=== PATIENT | female | born 1940 | race Caucasian/White ===

== ENCOUNTER 2016-04-11 06:32 | Emergency (ER) | payer MEDICARE, BC ==
[2016-04-11] MEDS ORDERED: SODIUM CHLORIDE 0.9% 1,000 ML IV ONE ×2 (07:30→10:35)
--- NOTE | 2016-04-11 07:39 | ED ---
General Adult HPI - General Chief complaint: Altered Mental Status Stated complaint: Altered Mental Time Seen by Provider: 04/11/16 07:00 Source: patient, RN notes reviewed Mode of arrival: EMS Limitations: no limitations - History of Present Illness Initial comments: This a 75-year-old female who presents to the emergency department with her daughter. Patient's past medical history of Alzheimer's. Daughter states today she must have fallen down in the bathroom and used her life alert because EMS arrived. EMS picked her up and brought her to the emergency department. Daughter states she does not complain of any injury does not appear that she has injured her head she has no neck pain. Daughter states that she does seem a little altered from her baseline. Daughter states she seems a little disoriented. Daughter states she was this way yesterday but eventually came around during the day. Daughter wonders if she has urinary tract infection or may be a little dehydrated which are cases in the past that caused her to be altered. Patient does not currently complain of any pain anywhere she denies chest pain or difficulty breathing she denies headache she denies neck pain she denies abdominal pain. Patient has not had any vomiting or diarrhea that the daughter knows of. She has not had any fever cough recently. - Related Data Home Medications Medication Instructions Recorded Confirmed Aspirin [Adult Low Dose Aspirin EC] 81 mg PO DAILY 04/11/16 04/11/16 Donepezil 23mg Tab 23 mg PO DAILY 04/11/16 04/11/16 Memantine [Namenda] 10 mg PO BID 04/11/16 04/11/16 Simvastatin [Zocor] 40 mg PO DAILY 04/11/16 04/11/16 Allergies Allergy/AdvReac Type Severity Reaction Status Date / Time No Known Allergies Allergy Unverified 04/11/16 07:31 Review of Systems ROS Statement: Those systems with pertinent positive or pertinent negative responses have been documented in the HPI. ROS Other: All systems not noted in ROS Statement are negative. Past Medical History Past Medical History: Unable to Obtain History of Any Multi-Drug Resistant Organisms: None Reported, Unobtainable Past Surgical History: Unable to Obtain Past Psychological History: No Psychological Hx Reported, Unable to Obtain Smoking Status: Never smoker Past Drug Use History: Unable to Obtain General Exam - General Exam Comments Initial Comments: GENERAL: Patient is well-developed and well-nourished. Patient is nontoxic and well- hydrated and is in no acute distress. ENT: Neck is soft and supple. No significant lymphadenopathy is noted. Oropharynx is clear. Moist mucous membranes. Neck has full range of motion without eliciting any pain. EYES: The sclera were anicteric and conjunctiva were pink and moist. Extraocular movements were intact and pupils were equal round and reactive to light. Eyelids were unremarkable. PULMONARY: Unlabored respirations. Good breath sounds bilaterally. No audible rales rhonchi or wheezing was noted. CARDIOVASCULAR: There is a regular rate and rhythm without any murmurs gallops or rubs. ABDOMEN: Soft and nontender with normal bowel sounds. No palpable organomegaly was noted. There is no palpable pulsatile mass. SKIN: Skin is clear with no lesions or rashes and otherwise unremarkable. NEUROLOGIC: Patient is alert and oriented 1. Cranial nerves II through XII are grossly intact. Motor and sensory are also intact. Normal speech, volume and content. Symmetrical smile. MUSCULOSKELETAL: Normal extremities with adequate strength and full range of motion. No lower extremity swelling or edema. No calf tenderness. LYMPHATICS: No significant lymphadenopathy is noted PSYCHIATRIC: Normal psychiatric evaluation. Normal interpersonal interactions appears functionally intact in deals appropriately with others. No signs of depression. No signs of anxiety. Limitations: no limitations Course Vital Signs 04/11/16 04/11/16 04/11/16 06:33 07:17 08:54 Temperature 98.5 F Pulse Rate 99 90 98 Respiratory 16 18 18 Rate Blood Pressure 145/63 145/73 172/82 O2 Sat by Pulse 100 96 100 Oximetry 04/11/16 04/11/16 09:38 11:20 Temperature 98.3 F 100.8 F H Pulse Rate 89 92 Respiratory 20 22 Rate Blood Pressure 163/73 159/83 O2 Sat by Pulse 96 Oximetry Medical Decision Making - Medical Decision Making EKG shows a normal sinus rhythm at 92 bpm VA interval is 136 QRS is 90 QT interval 348 QTC is 4:30. Patient's EKG shows no ST segment elevation or depression or T-wave abnormality she noted. Chest x-ray showed no acute abnormality. Urine showed possible urinary tract infection so started the patient on Rocephin. Patient was ambulating to the bathroom with some assistance and complained of left knee pain psychiatric the left knee. Left knee x-ray showed no acute abnormality. CT of the brain shows a large intracranial hemorrhage measuring 2 x 2 0.5 x 3.5 cm in the right parietal occipital region there is also some suspicion for a sub -dural hematoma. - Lab Data Result diagrams: 04/11/16 07:40 04/11/16 07:40 Lab Results 04/11/16 04/11/16 04/11/16 Range/Units 06:48 07:40 07:40 WBC 15.6 H (3.8-10.6) k/uL RBC 4.28 (3.80-5.40) m/uL Hgb 11.7 (11.4-16.0) gm/dL Hct 35.1 (34.0-46.0) % MCV 82.1 (80.0-100.0) fL MCH 27.3 (25.0-35.0) pg MCHC 33.3 (31.0-37.0) g/dL RDW 14.1 (11.5-15.5) % Plt Count 320 (150-450) k/uL Neutrophils % 85 % Lymphocytes % 8 % Monocytes % 5 % Eosinophils % 1 % Basophils % 0 % Neutrophils # 13.3 H (1.3-7.7) k/uL Lymphocytes # 1.2 (1.0-4.8) k/uL Monocytes # 0.8 (0-1.0) k/uL Eosinophils # 0.1 (0-0.7) k/uL Basophils # 0.0 (0-0.2) k/uL PT (9.0-12.0) sec INR (<1.1) APTT (22.0-30.0) sec Sodium (137-145) mmol/L Potassium (3.5-5.1) mmol/L Chloride (98-107) mmol/L Carbon Dioxide (22-30) mmol/L Anion Gap mmol/L BUN (7-17) mg/dL Creatinine (0.52-1.04) mg/dL Est GFR (MDRD) Af Amer (>60 ml/min/1.73 sqM) Est GFR (MDRD) Non-Af (>60 ml/min/1.73 sqM) Glucose (74-99) mg/dL POC Glucose (mg/dL) 111 H (75-99) mg/dL POC Glu Wire Winder ID Milind Arellano Calcium (8.4-10.2) mg/dL Total Bilirubin (0.2-1.3) mg/dL AST (14-36) U/L ALT (9-52) U/L Alkaline Phosphatase (38-126) U/L Total Creatine Kinase 837 H (30-135) U/L CK-MB (CK-2) 11.9 H* (0.0-2.4) ng/mL CK-MB (CK-2) Rel Index 1.4 Troponin I 0.015 (0.000-0.034) ng/mL Total Protein (6.3-8.2) g/dL Albumin (3.5-5.0) g/dL Urine Color Urine Appearance (Clear) Urine pH (5.0-8.0) Ur Specific [place] (1.001-1.035) Urine Protein (Negative) Urine Glucose (UA) (Negative) Urine Ketones (Negative) Urine Blood (Negative) Urine Nitrate (Negative) Urine Bilirubin (Negative) Urine Urobilinogen (<2.0) mg/dL Ur Leukocyte Esterase (Negative) Urine RBC (0-5) /hpf Urine WBC (0-5) /hpf Ur Squamous Epith Cells (0-4) /hpf Amorphous Sediment (None) /hpf Hyaline Casts (0-2) /lpf Urine Mucus (None) /hpf Urine Opiates Screen (NotDetected) Ur Oxycodone Screen (NotDetected) Urine Methadone Screen (NotDetected) Ur Propoxyphene Screen (NotDetected) Ur Barbiturates Screen (NotDetected) U Tricyclic Antidepress (NotDetected) Ur Phencyclidine Scrn (NotDetected) Ur Amphetamines Screen (NotDetected) U Methamphetamines Scrn (NotDetected) U Benzodiazepines Scrn (NotDetected) Urine Cocaine Screen (NotDetected) U Marijuana (THC) Screen (NotDetected) 04/11/16 04/11/16 04/11/16 Range/Units 07:40 07:40 09:31 WBC (3.8-10.6) k/uL RBC (3.80-5.40) m/uL Hgb (11.4-16.0) gm/dL Hct (34.0-46.0) % MCV (80.0-100.0) fL MCH (25.0-35.0) pg MCHC (31.0-37.0) g/dL RDW (11.5-15.5) % Plt Count (150-450) k/uL Neutrophils % % Lymphocytes % % Monocytes % % Eosinophils % % Basophils % % Neutrophils # (1.3-7.7) k/uL Lymphocytes # (1.0-4.8) k/uL Monocytes # (0-1.0) k/uL Eosinophils # (0-0.7) k/uL Basophils # (0-0.2) k/uL PT 10.9 (9.0-12.0) sec INR 1.1 (<1.1) APTT 18.8 L (22.0-30.0) sec Sodium 137 (137-145) mmol/L Potassium 4.0 (3.5-5.1) mmol/L Chloride 100 (98-107) mmol/L Carbon Dioxide 23 (22-30) mmol/L Anion Gap 14 mmol/L BUN 18 H (7-17) mg/dL Creatinine 0.95 (0.52-1.04) mg/dL Est GFR (MDRD) Af Amer >60 (>60 ml/min/1.73 sqM) Est GFR (MDRD) Non-Af 58 (>60 ml/min/1.73 sqM) Glucose 109 H (74-99) mg/dL POC Glucose (mg/dL) (75-99) mg/dL POC Glu Wire Winder ID Calcium 9.5 (8.4-10.2) mg/dL Total Bilirubin 0.6 (0.2-1.3) mg/dL AST 31 (14-36) U/L ALT 26 (9-52) U/L Alkaline Phosphatase 110 (38-126) U/L Total Creatine Kinase (30-135) U/L CK-MB (CK-2) (0.0-2.4) ng/mL CK-MB (CK-2) Rel Index Troponin I (0.000-0.034) ng/mL Total Protein 7.9 (6.3-8.2) g/dL Albumin 4.3 (3.5-5.0) g/dL Urine Color Yellow Urine Appearance Cloudy H (Clear) Urine pH 5.5 (5.0-8.0) Ur Specific [place] 1.019 (1.001-1.035) Urine Protein Trace H (Negative) Urine Glucose (UA) Negative (Negative) Urine Ketones 1+ H (Negative) Urine Blood Moderate H (Negative) Urine Nitrate Negative (Negative) Urine Bilirubin Negative (Negative) Urine Urobilinogen <2.0 (<2.0) mg/dL Ur Leukocyte Esterase Large H (Negative) Urine RBC 8 H (0-5) /hpf Urine WBC 14 H (0-5) /hpf Ur Squamous Epith Cells 6 H (0-4) /hpf Amorphous Sediment Rare H (None) /hpf Hyaline Casts 11 H (0-2) /lpf Urine Mucus Rare H (None) /hpf Urine Opiates Screen Not Detected (NotDetected) Ur Oxycodone Screen Not Detected (NotDetected) Urine Methadone Screen Not Detected (NotDetected) Ur Propoxyphene Screen Not Detected (NotDetected) Ur Barbiturates Screen Not Detected (NotDetected) U Tricyclic Antidepress Not Detected (NotDetected) Ur Phencyclidine Scrn Not Detected (NotDetected) Ur Amphetamines Screen Not Detected (NotDetected) U Methamphetamines Scrn Not Detected (NotDetected) U Benzodiazepines Scrn Not Detected (NotDetected) Urine Cocaine Screen Not Detected (NotDetected) U Marijuana (THC) Screen Not Detected (NotDetected) Critical Care Time Critical Care Time: Yes Total Critical Care Time: 35 Disposition Clinical Impression: Urinary tract infection, Dehydration, Altered mental status, Intraparenchymal hemorrhage of brain Disposition: OTHER INSTITUTION NOT DEFINED Time of Disposition: 11:55 - Out of Hospital Transfer - Req. Specs Out of Hospital Transfer - Requested Specifics: Other Emergency Center ( [facility]
[2016-04-11 07:56] LABS: Basophils % (A) 0 %; CHCM 33.1; Eosinophils # (A) 0.1 k/uL (0-0.7); Eosinophils % (A) 1 %; HCT 35.1 % (34.0-46.0); HDW 2.66; HGB 11.7 gm/dL (11.4-16.0); Luc # (Auto) 0.12; Luc % (Auto) 1; Lymphocytes # (A) 1.2 k/uL (1.0-4.8); Lymphocytes % (A) 8 %; MCH 27.3 pg (25.0-35.0); MCHC 33.3 g/dL (31.0-37.0); MCV 82.1 fL (80.0-100.0); Mean Platelet Volume 7.5; Monocytes # (A) 0.8 k/uL (0-1.0); Monocytes % (A) 5 %; Neutrophils # (A) 13.3 k/uL (1.3-7.7); Neutrophils % (A) 85 %; RBC 4.28 m/uL (3.80-5.40); RDW 14.1 % (11.5-15.5); WBC 15.6 k/uL (3.8-10.6); WBC (Perox) 15.13
[2016-04-11 07:58] LABS: Glucose,Whole Blood 111 mg/dL (75-99)
[2016-04-11 08:07] LABS: ALT 26 U/L (9-52); AST 31 U/L (14-36); Alkaline Phosphatase 110 U/L (38-126); Anion Gap 14 mmol/L; Blood Urea Nitrogen 18 mg/dL (7-17); Calcium 9.5 mg/dL (8.4-10.2); Carbon Dioxide 23 mmol/L (22-30); Chloride 100 mmol/L (98-107); Glucose 109 mg/dL (74-99); Non-African American GFR(MDRD) 58 (>60 ml/min/1.73 sqM); Sodium 137 mmol/L (137-145); Total Bilirubin 0.6 mg/dL (0.2-1.3); Total Protein 7.9 g/dL (6.3-8.2)
[2016-04-11 08:14] LABS: INR 1.1 (<1.1); Prothrombin Time 10.9 sec (9.0-12.0)
--- NOTE | 2016-04-11 08:26 | XR ---
EXAMINATION TYPE: XR chest 2V DATE OF EXAM: 04/11/2016 8:15 AM COMPARISON: NONE TECHNIQUE: PA and lateral views submitted. HISTORY: Altered mental status FINDINGS: The lungs are clear and there is no pneumothorax, pleural effusion, or focal pneumonia. Degenerative change of the spine noted. IMPRESSION: 1. No acute process.
[2016-04-11 08:32] LABS: Creatine Kinase MB 11.9 ng/mL (0.0-2.4); Troponin I 0.015 ng/mL (0.000-0.034)
[2016-04-11 08:37] LABS: Partial Thromboplastin Time 18.8 sec (22.0-30.0)
[2016-04-11 09:52] LABS: Amorphous Sediment,Urine Rare /hpf; Appearance,Urine Cloudy (Clear); Bilirubin,Urine Negative (Negative); Glucose,Urine (UA) Negative (Negative); Ketones,Urine 1+ (Negative); Leukocyte Esterase,Urine Large (Negative); Mucus,Urine Rare /hpf; Nitrite,Urine Negative (Negative); PH, Urine 5.5 (5.0-8.0); Particle Count 9574; Protein,Urine Trace (Negative); RBC,Urine 8 /hpf (0-5); Specific Gravity,Urine 1.019 (1.001-1.035); Squamous Epithelial Cell,Urine 6 /hpf (0-4); UA Billing (MACRO vs. MICRO) MICRO; Urobilinogen,Urine <2.0 mg/dL (<2.0); WBC,Urine 14 /hpf (0-5)
--- NOTE | 2016-04-11 11:10 | XR ---
EXAMINATION TYPE: XR knee complete LT DATE OF EXAM: 04/11/2016 11:04 AM COMPARISON: NONE HISTORY: Pain TECHNIQUE: Four views are submitted. FINDINGS: There is significant narrowing the joint spaces with chondrocalcinosis and hypertrophic changes. No e rosive changes. Mild diffuse osteopenia. Osseous structures intact. IMPRESSION: 1. Severe osteoarthritis
[2016-04-11] MEDS ORDERED: ACETAMINOPHEN IV (For NPO) 1,000 MG in SALINE 100 100ML.BAG IVPB STA (11:18)
[2016-04-11] MEDS ORDERED: IBUPROFEN IV 600 MG in SODIUM CHLORIDE 0.9% 250 ML IV STA (11:21)
--- NOTE | 2016-04-11 11:50 | CT ---
EXAMINATION TYPE: CT brain wo con DATE OF EXAM: 04/11/2016 11:39 AM COMPARISON: NONE HISTORY: Fever, UTI, Altered Metal status CT DLP: 2130.8 mGycm Automated exposure control for dose reduction was used. FINDINGS: There is a large intraparenchymal hemorrhage involving the posterior right parietal occipital junctio n. Measures 2 x 2.5 x 3.5 cm with surrounding edema. No midline shift. Moderate degenerative change with extensive white matter low attenuation which is nonspecific but mos t typical remote ischemic change. There is asymmetric thickening to the cerebellar tentorium on the right suspicious for subdural hemat kenrick with a maximal thickness diameter of 5 mm. Case discussed with emergency room physician. IMPRESSION: 1. Large acute intracranial hemorrhage measuring 2 x 2 0.5 x 3.5 cm in the right parietal occipital j unction. 2. Findings also suspicious for a small subdural hematoma along the right cerebellar tentorium 3. Degenerative and remote ischemic change
[2016-04-11 12:06] VITALS: BP 136/94; PULSE 89; RESP 18; TEMP 100
== END 2016-04-11 12:31 | disposition other institution (70) ==
LOC: SUPCPDRO 06:32 → EC 06:32 → 3OBS 10:35 → UNDOADMOB 10:35
DX: I62.9 Nontraumatic intracranial hemorrhage, unspecified (principal); N39.0 Urinary tract infection, site not specified; E86.0 Dehydration; R41.82 Altered mental status, unspecified; M19.90 Unspecified osteoarthritis, unspecified site; G30.9 Alzheimer's disease, unspecified; F02.80 Dementia in other diseases classified elsewhere, unspecified severity, without behavioral disturbance, psychotic disturbance, mood disturbance, and anxiety; Z79.82 Long term (current) use of aspirin; Z79.899 Other long term (current) drug therapy
CPT/HCPCS: 99291; 96365; 96375; 96361 ×2; 36415; 93005; 80053; 82550; 82553; 83605; 84484; 85025; 85610; 85730; 81001; 80306; 87086; 71020; 73562; 70450; J0696; J0131

== ENCOUNTER 2016-05-12 10:04 | Emergency (ER) | payer MEDICARE, BC ==
[2016-05-12 10:18] VITALS: BP 119/70; PULSE 90; RESP 19
[2016-05-12 10:32] VITALS: TEMP 97.3
[2016-05-12] MEDS ORDERED: SODIUM CHLORIDE 0.9% 500 ML IV ONE (10:32)
--- NOTE | 2016-05-12 10:38 | ED ---
General Adult HPI - General Source: patient Mode of arrival: wheelchair Limitations: no limitations <Jani Randhawa - Last Filed: 05/12/16 12:40> <Allan Kim - Last Filed: 05/12/16 12:50> - General Chief complaint: Skin/Abscess/Foreign Body Stated complaint: shaky and redness, whole body Time Seen by Provider: 05/12/16 10:26 - History of Present Illness Initial comments: 75-year-old female patient who is a poor historian and a resident of a adult foster care facility is brought in by staff at the facility for an episode of shaking and full body flushing. Caregiver states that she was sitting at breakfast eating when her whole body became red and flushed, and she started having severe shaking. Episode lasted for about 20 minutes. Patient states she does feel chilled. Patient denies any pain anywhere, denies any shortness of breath, dizziness, headache, weakness, or chest pain. She denies any abdominal pain, nausea, vomiting, constipation, diarrhea, hematuria, dysuria, urinary frequency or urinary urgency. She denies any itching, wheezing, throat tightness, or trouble swallowing. She does report a productive cough with clear sputum. Unsure how long this has been present. Patient appears shaky. Exhibit some repetitive questioning and memory issues during exam. Caregiver states that she has been at the facility for only 1 week. Has history of CVA and does take Aricept chronically. (Jani Randhawa) - Related Data Home Medications Medication Instructions Recorded Confirmed Aspirin [Adult Low Dose Aspirin EC] 81 mg PO DAILY 04/11/16 04/11/16 Donepezil 23mg Tab 23 mg PO DAILY 04/11/16 04/11/16 Memantine [Namenda] 10 mg PO BID 04/11/16 04/11/16 Simvastatin [Zocor] 40 mg PO DAILY 04/11/16 04/11/16 Previous Rx's Medication Instructions Recorded Ciprofloxacin HCl [Cipro] 500 mg PO Q12HR #20 tablet 05/12/16 Allergies Allergy/AdvReac Type Severity Reaction Status Date / Time No Known Allergies Allergy Verified 05/12/16 10:18 Review of Systems ROS Other: All systems not noted in ROS Statement are negative. <Jani Randhawa - Last Filed: 05/12/16 12:40> ROS Other: All systems not noted in ROS Statement are negative. <Allan Kim - Last Filed: 05/12/16 12:50> ROS Statement: Those systems with pertinent positive or pertinent negative responses have been documented in the HPI. Past Medical History Past Medical History: CVA/TIA, Dementia, Hyperlipidemia, Osteoarthritis (OA) Additional Past Medical History / Comment(s): diverticulosis, thoracic aortic aneurysm, previous brain bleed History of Any Multi-Drug Resistant Organisms: None Reported, Unobtainable Past Surgical History: No Surgical Hx Reported Past Psychological History: No Psychological Hx Reported, Unable to Obtain Smoking Status: Never smoker Past Drug Use History: Unable to Obtain <Jani Randhawa - Last Filed: 05/12/16 12:40> General Exam Limitations: no limitations General appearance: alert, in no apparent distress Head exam: Present: atraumatic, normocephalic, normal inspection Eye exam: Present: normal appearance, PERRL, EOMI. Absent: scleral icterus, conjunctival injection, periorbital swelling ENT exam: Present: normal exam, normal oropharynx, mucous membranes moist Neck exam: Present: normal inspection. Absent: tenderness, meningismus, lymphadenopathy Respiratory exam: Present: normal lung sounds bilaterally. Absent: respiratory distress, wheezes, rales, rhonchi, stridor Cardiovascular Exam: Present: regular rate, normal rhythm, normal heart sounds. Absent: systolic murmur, diastolic murmur, rubs, gallop, clicks GI/Abdominal exam: Present: soft, normal bowel sounds. Absent: distended, tenderness, guarding, rebound, rigid Extremities exam: Present: full ROM, normal capillary refill. Absent: normal inspection (Erythema to her anterior legs on the warm to touch), tenderness, pedal edema, joint swelling, calf tenderness Back exam: Present: normal inspection Neurological exam: Present: alert, CN II-XII intact. Absent: oriented X3 ( Oriented 1 only.) Psychiatric exam: Present: normal affect, normal mood Skin exam: Present: warm, dry, intact. Absent: normal color (Cheeks flushed), rash <Jani Randhawa - Last Filed: 05/12/16 12:40> Medical Decision Making - Lab Data Result diagrams: 05/12/16 10:50 05/12/16 10:50 - Radiology Data Radiology results: report reviewed, image reviewed <Jani Randhawa - Last Filed: 05/12/16 12:40> - Lab Data Result diagrams: 05/12/16 10:50 05/12/16 10:50 <Allan Kim - Last Filed: 05/12/16 12:50> - Medical Decision Making 75-year-old female patient presented to emergency department for evaluation after having an episode of flushing and shaking that lasted about [address] of the brain and chest x-ray were completed without any acute abnormalities noted. Urinalysis did reveal urinary tract infection, other lab work was unremarkable. Influenza negative. Patient will be discharged home with a prescription for Cipro to treat urinary tract infection. Instructions follow- up with her primary care physician in one to 2 days for recheck. Instructions to return for any new, worsening, or concerning symptoms. (Jani Randhawa) - Lab Data Lab Results 05/12/16 05/12/16 05/12/16 Range/Units 10:50 10:50 10:50 WBC 11.7 H (3.8-10.6) k/uL RBC 4.40 (3.80-5.40) m/uL Hgb 12.0 (11.4-16.0) gm/dL Hct 36.9 (34.0-46.0) % MCV 84.0 (80.0-100.0) fL MCH 27.2 (25.0-35.0) pg MCHC 32.4 (31.0-37.0) g/dL RDW 15.9 H (11.5-15.5) % Plt Count 360 (150-450) k/uL Neutrophils % 81 % Lymphocytes % 12 % Monocytes % 6 % Eosinophils % 0 % Basophils % 0 % Neutrophils # 9.5 H (1.3-7.7) k/uL Lymphocytes # 1.4 (1.0-4.8) k/uL Monocytes # 0.7 (0-1.0) k/uL Eosinophils # 0.1 (0-0.7) k/uL Basophils # 0.0 (0-0.2) k/uL Sodium 138 (137-145) mmol/L Potassium 5.1 (3.5-5.1) mmol/L Chloride 103 (98-107) mmol/L Carbon Dioxide 22 (22-30) mmol/L Anion Gap 13 mmol/L BUN 14 (7-17) mg/dL Creatinine 0.57 (0.52-1.04) mg/dL Est GFR (MDRD) Af Amer >60 (>60 ml/min/1.73 sqM) Est GFR (MDRD) Non-Af >60 (>60 ml/min/1.73 sqM) Glucose 97 (74-99) mg/dL Calcium 9.6 (8.4-10.2) mg/dL Total Bilirubin 1.0 (0.2-1.3) mg/dL AST 33 (14-36) U/L ALT 35 (9-52) U/L Alkaline Phosphatase 101 (38-126) U/L Total Protein 7.1 (6.3-8.2) g/dL Albumin 3.9 (3.5-5.0) g/dL Urine Color Urine Appearance (Clear) Urine pH (5.0-8.0) Ur Specific [place] (1.001-1.035) Urine Protein (Negative) Urine Glucose (UA) (Negative) Urine Ketones (Negative) Urine Blood (Negative) Urine Nitrite (Negative) Urine Bilirubin (Negative) Urine Urobilinogen (<2.0) mg/dL Ur Leukocyte Esterase (Negative) Urine RBC (0-5) /hpf Urine WBC (0-5) /hpf Ur Squamous Epith Cells (0-4) /hpf Hyaline Casts (0-2) /lpf Urine Mucus (None) /hpf Influenza Type A RNA Not Detected (Not Detectd) Influenza Type B (PCR) Not Detected (Not Detectd) 05/12/16 Range/Units 11:45 WBC (3.8-10.6) k/uL RBC (3.80-5.40) m/uL Hgb (11.4-16.0) gm/dL Hct (34.0-46.0) % MCV (80.0-100.0) fL MCH (25.0-35.0) pg MCHC (31.0-37.0) g/dL RDW (11.5-15.5) % Plt Count (150-450) k/uL Neutrophils % % Lymphocytes % % Monocytes % % Eosinophils % % Basophils % % Neutrophils # (1.3-7.7) k/uL Lymphocytes # (1.0-4.8) k/uL Monocytes # (0-1.0) k/uL Eosinophils # (0-0.7) k/uL Basophils # (0-0.2) k/uL Sodium (137-145) mmol/L Potassium (3.5-5.1) mmol/L Chloride (98-107) mmol/L Carbon Dioxide (22-30) mmol/L Anion Gap mmol/L BUN (7-17) mg/dL Creatinine (0.52-1.04) mg/dL Est GFR (MDRD) Af Amer (>60 ml/min/1.73 sqM) Est GFR (MDRD) Non-Af (>60 ml/min/1.73 sqM) Glucose (74-99) mg/dL Calcium (8.4-10.2) mg/dL Total Bilirubin (0.2-1.3) mg/dL AST (14-36) U/L ALT (9-52) U/L Alkaline Phosphatase (38-126) U/L Total Protein (6.3-8.2) g/dL Albumin (3.5-5.0) g/dL Urine Color Yellow Urine Appearance Clear (Clear) Urine pH 8.0 (5.0-8.0) Ur Specific [place] 1.015 (1.001-1.035) Urine Protein Trace H (Negative) Urine Glucose (UA) Negative (Negative) Urine Ketones Negative (Negative) Urine Blood Negative (Negative) Urine Nitrite Negative (Negative) Urine Bilirubin Negative (Negative) Urine Urobilinogen <2.0 (<2.0) mg/dL Ur Leukocyte Esterase Large H (Negative) Urine RBC 1 (0-5) /hpf Urine WBC 10 H (0-5) /hpf Ur Squamous Epith Cells 4 (0-4) /hpf Hyaline Casts 8 H (0-2) /lpf Urine Mucus Few H (None) /hpf Influenza Type A RNA (Not Detectd) Influenza Type B (PCR) (Not Detectd) - Radiology Data Two-view chest x-ray shows no acute intrathoracic abnormality. Dictation by Dr. Gillespie. CT brain without contrast reveals reabsorption of the patient's previous right parietal hematoma. Atrophic change. Chronic white matter ischemic change. Chronic sinus mucosal disease. Impression by Dr. Gillespie. (Jani Randhawa) Disposition Time of Disposition: 12:40 <Jani Randhawa - Last Filed: 05/12/16 12:40> <Allan Kim - Last Filed: 05/12/16 12:50> Clinical Impression: Urinary tract infection, Episode of shaking, Flushing Disposition: HOME SELF-CARE Condition: Stable Instructions: Urinary Tract Infection in Women (ED) Additional Instructions: Complete antibiotic prescription in full. Have urinalysis rechecked once antibiotics are complete. Return for any new, worsening, or concerning symptoms. Prescriptions: Ciprofloxacin HCl [Cipro] 500 mg PO Q12HR #20 tablet Referrals: Gene Lopez MD [Primary Care Provider] - 1-2 days
[2016-05-12 11:10] LABS: Basophils % (A) 0 %; CH 27.1; CHCM 32.4; Eosinophils # (A) 0.1 k/uL (0-0.7); Eosinophils % (A) 0 %; HCT 36.9 % (34.0-46.0); HDW 2.73; Luc # (Auto) 0.17; Luc % (Auto) 2; Lymphocytes # (A) 1.4 k/uL (1.0-4.8); Lymphocytes % (A) 12 %; MCH 27.2 pg (25.0-35.0); MCHC 32.4 g/dL (31.0-37.0); Mean Platelet Volume 6.9; Monocytes # (A) 0.7 k/uL (0-1.0); Monocytes % (A) 6 %; Neutrophils # (A) 9.5 k/uL (1.3-7.7); Neutrophils % (A) 81 %; RDW 15.9 % (11.5-15.5); WBC 11.7 k/uL (3.8-10.6); WBC (Perox) 11.34
[2016-05-12 11:19] LABS: ALT 35 U/L (9-52); AST 33 U/L (14-36); Alkaline Phosphatase 101 U/L (38-126); Anion Gap 13 mmol/L; Blood Urea Nitrogen 14 mg/dL (7-17); Calcium 9.6 mg/dL (8.4-10.2); Carbon Dioxide 22 mmol/L (22-30); Chloride 103 mmol/L (98-107); Glucose 97 mg/dL (74-99); Non-African American GFR(MDRD) >60 (>60 ml/min/1.73 sqM); Potassium 5.1 mmol/L (3.5-5.1); Sodium 138 mmol/L (137-145); Total Protein 7.1 g/dL (6.3-8.2)
--- NOTE | 2016-05-12 11:26 | XR ---
EXAMINATION TYPE: XR chest 2V DATE OF EXAM: 05/12/2016 11:13 AM HISTORY: Confusion. REFERENCE: Previous study dated 04/11/2016. FINDINGS: The lungs are clear. Pleural spaces are clear. Heart size is upper limits of normal. IMPRESSION: NO ACUTE INTRATHORACIC ABNORMALITY.
--- NOTE | 2016-05-12 11:54 | CT ---
EXAMINATION TYPE: CT brain wo con DATE OF EXAM: 05/12/2016 11:43 AM COMPARISON: Previous study dated 04/11/2016 HISTORY: chills and redness, hx of CVA and TIA CT DLP: 1017.9 mGycm Automated exposure control for dose reduction was used. FINDINGS: The patient's intracranial bleed in the posterior parietal region on the right has resorbed. There is some and chondromalacia at the site of hemorrhage. There are generalized changes of sulcal prominence and ventriculomegaly, compatible with atrophic [place]. There is diffuse periventricular white matter lucency, compatible with small vessel ischemic [place]. There is no acute focal lesion, mass effect or midline shift identified. I do not see evidence o f intracranial blood. There is mucoperiosteal disease involving both maxillary sinuses, worse on the right than the left. There is mucosal thickening involving the ethmoid sinuses, greater on the right than the left. There is also some mucoperiosteal thickening involving the left sphenoid sinus. The ma stoid air cells are clear. No depressed skull fracture is seen. IMPRESSION: 1. RESORPTION OF THE PATIENT'S PREVIOUS RIGHT PARIETAL HEMATOMA. 2. ATROPHIC CHANGE. 3. CHRONIC WHITE MATTER ISCHEMIC CHANGE. 4. CHRONIC SINUS MUCOSAL DISEASE.
[2016-05-12 12:32] LABS: Appearance,Urine Clear (Clear); Bilirubin,Urine Negative (Negative); Glucose,Urine (UA) Negative (Negative); Ketones,Urine Negative (Negative); Leukocyte Esterase,Urine Large (Negative); Mucus,Urine Few /hpf; Nitrite,Urine Negative (Negative); Particle Count 7071; Protein,Urine Trace (Negative); RBC,Urine 1 /hpf (0-5); Specific Gravity,Urine 1.015 (1.001-1.035); Squamous Epithelial Cell,Urine 4 /hpf (0-4); UA Billing (MACRO vs. MICRO) MICRO; Urobilinogen,Urine <2.0 mg/dL (<2.0); WBC,Urine 10 /hpf (0-5)
[2016-05-12] MEDS ORDERED: LORazepam 1 MG TAB PO STA (12:49)
== END 2016-05-12 13:09 | disposition home or self-care (01) ==
LOC: EC 10:04
DX: N39.0 Urinary tract infection, site not specified (principal); R25.1 Tremor, unspecified; R23.2 Flushing; E78.5 Hyperlipidemia, unspecified; M19.90 Unspecified osteoarthritis, unspecified site; F03.90 Unspecified dementia, unspecified severity, without behavioral disturbance, psychotic disturbance, mood disturbance, and anxiety; Z79.82 Long term (current) use of aspirin; Z79.899 Other long term (current) drug therapy
CPT/HCPCS: 36415; 70450; 71020; 80053; 81001; 85025; 87086; 87502; 96360; 99284

== ENCOUNTER → 2018-04-13 | Outpatient (CLI) | payer MEDICARE, BC ==
--- NOTE | 2018-04-13 17:07 | XR ---
EXAMINATION TYPE: XR wrist complete LT DATE OF EXAM: 04/13/2018 CLINICAL HISTORY: Left wrist pain after fall injury. TECHNIQUE: Frontal, lateral , scaphoid, and oblique images of the left wrist are obtained. COMPARISON: None FINDINGS: Demineralization is present which is noted to lower radiographic sensitivity. There is no a cute fracture or dislocation seen. Calcification of triangle of fibrocartilage is identified. There i s moderate to severe narrowing at base of first metacarpal. Overlying soft tissue is unremarkable. IMPRESSION: There is no acute fracture or dislocation in the left wrist clearly seen.
== END ==
LOC: RADXRMAIN 15:48
PROVIDERS: ATTEND Internal Medicine
DX: M25.532 Pain in left wrist (principal)